=== PATIENT | male | born 1990 | race African-American/Black ===

== ENCOUNTER 2017-02-13 07:31 | Emergency (ER) | payer BC, MEDICAID ==
[2017-02-13] MEDS ORDERED: IBUPROFEN 600 MG TABLET PO ONE (08:14)
[2017-02-13] MEDS ORDERED: PREDNISONE 20 MG TABLET PO ONE (08:14)
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
[2017-02-13 09:17] VITALS: BP 127/75
== END 2017-02-13 09:17 | disposition home or self-care (01) ==
LOC: ER 07:31
DX: J06.9 Acute upper respiratory infection, unspecified (principal); Z87.891 Personal history of nicotine dependence
CPT/HCPCS: 71020; 99283

== ENCOUNTER 2017-05-02 05:46 | Emergency (ER) | payer BC ==
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
[2017-05-02 07:37] VITALS: BP 158/96
== END 2017-05-02 07:38 | disposition home or self-care (01) ==
LOC: ER 05:46
DX: J02.9 Acute pharyngitis, unspecified (principal); R50.9 Fever, unspecified; Z20.818 Contact with and (suspected) exposure to other bacterial communicable diseases
CPT/HCPCS: 87070; 87880; 99283

== ENCOUNTER 2017-08-29 06:20 | Emergency (ER) | payer BC ==
[2017-08-29 06:30] VITALS: BP 153/93
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
== END 2017-08-29 08:10 | disposition home or self-care (01) ==
LOC: ER 06:20
DX: M79.651 Pain in right thigh (principal); Z87.81 Personal history of (healed) traumatic fracture; Z98.890 Other specified postprocedural states
CPT/HCPCS: 99283

== ENCOUNTER → 2017-11-25 | Outpatient (CLI) | payer BC ==
--- NOTE | 2017-11-25 11:25 | RADIOLOGY REPORT (SQ) ---
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 TECHNIQUE: CT scan of the pelvis performed without intravenous or oral contrast. Images reviewed wi th soft tissue and bone windows. Reconstructed coronal and sagittal MPR images reviewed. Additional surface shaded 3D reconstructions performed of the pelvis. All images stored on PACS. All CT scanners at this facility use dose modulation, iterative reconstruction, and/or weight based d osing when appropriate to reduce radiation dose to as low as reasonably achievable (ALARA). [facility]: Dose Right [facility]: CareDose [facility]: Dose Right [facility]: Teradose 4D [facility]: [employer] RADIATION DOSE: CT Rad equipment meets quality standard of care and radiation dose reduction techniq ues were employed. CTDIvol: 17.6 mGy. DLP: 656 mGy-cm. mGy. LIMITATIONS: None. FINDINGS: PELVIC BONES: No acute fracture. No worrisome bone lesions. VISUALIZED SPINE: Disc space narrowing at the lowest disc levels with broad disc bulges or mild poste rior protrusions at L4-5 and L5-S1. No sacral fracture or lesion. Coccyx intact. HIP(S): Old left posterior acetabulum fracture status post open reduction internal fixation with mall eable plate and screw device. The hip joint spaces look relatively symmetric bilaterally, potentiall y mildly symmetrically narrowed. No large subchondral cysts or erosions. No significant osteophytes . Mild heterotopic bone posterior to the left hip without solid ankylosis. Bilateral proximal femor al nails, full extent not assessed. PELVIC SOFT TISSUES: No significant findings. EXTRAPELVIC SOFT TISSUES: No significant findings. OTHER: No other significant finding. IMPRESSION: 1. Chronic post traumatic/postoperative changes. The hip joints look fairly symmetric and may be mildly narrowed bilaterally but without significant cysts or erosions or bulky osteophytes . There is some mild incompletely bridging posterior left hip heterotopic bone. TECHNICAL DOCUMENTATION: JOB ID: [id number] Quality ID # [id number]: Final reports with documentation of one or more dose reduction techniques (e.g., Au tomated exposure control, adjustment of the mA and/or kV according to patient size, use of iterative reconstruction technique) 2010 [employer]- All Rights Reserved
== END ==
LOC: RAD 10:10
PROVIDERS: ATTEND Orthopaedic Surgery
DX: M16.52 Unilateral post-traumatic osteoarthritis, left hip (principal)
CPT/HCPCS: 72192